=== PATIENT | male | born 1975 | race African-American/Black ===

== ENCOUNTER 2016-08-28 08:47 | Emergency (ER) | payer SELFPAY ==
[~2016-08-28] VITALS: Ht 180.3 cm; Wt 139.8 kg
[~2016-08-28 08:47] MED LIST: NAPROXEN500 MG PO; VALIUM2 MG PO
[2016-08-28] MEDS ORDERED: NYSTATIN15 GM TP (09:27)
[2016-08-28 09:37] VITALS: BP 129/81
== END 2016-08-28 09:37 | disposition home or self-care (01) ==
LOC: EME 08:47
DX: N48.1 Balanitis (principal)
CPT/HCPCS: 99281; 99283